=== PATIENT | male | born 1980 | race African-American/Black ===

== ENCOUNTER 2020-07-20 12:35 | Observation (INO) ==
[2020-07-20 13:00] LABS: Basophils % 0.2 % (0.0-0.8); Eosinophils # 0.2 10*3/uL (0.0-0.87); Eosinophils % 2.1 % (0.00-10.9); Hematocrit 40.4 VOL% (42.0-52.0); Hemoglobin 13.4 GM/DL (14.0-18.0); Immature Granulocytes % 0.5 %; Immature Granulocytes Absolute 0.04 #; Lymphocytes # 1.3 10*3/uL (1.4-4.0); Lymphocytes % 16.5 % (21.2-54.2); Mean Corpuscular HGB Conc 33.2 GM/DL (32-36); Mean Corpuscular Volume 85.1 FL (87-102); Mean Platelet Volume 8.8 FL (9.6-12.0); Monocytes % 6.5 % (1.7-12.7); Neutrophils % 74.2 % (38.7-73.9); Platelet Count 311 T/CUMM (130-400); Red Blood Count 4.75 MC/CUMM (3.8-5.5); Red Cell Distribution Width 15.4 % (9.3-17.3); White Blood Count 8.1 T/CUMM (4-12)
[2020-07-20 13:29] LABS: Alanine Aminotransferase 30 U/L (16-61); Albumin 3.8 G/DL (3.4-5.0); Alkaline Phosphatase 98 U/L (45-117); Aspartate Amino Transferase 19 U/L (0-37); Bilirubin,Total < 0.39 MG/DL (0.2-1.0); Blood Urea Nitrogen 12 MG/DL (7-18); Calcium 9.4 MG/DL (8.5-10.1); Glucose 96 MG/DL (74-106); Osmolality,Calculated 280.3 MOS/KG (273-304); Total Protein 7.9 G/DL (6.4-8.3)
[2020-07-20 13:30] LABS: Estimated Glom Filtration Rate 0 ML/MIN
[2020-07-20] MEDS ORDERED: hydrALAZINE 25 MG TABLET PO ONE (15:28)
[2020-07-20] MEDS ORDERED: LORazepam 2 MG/1 ML VIAL IV PRN (15:29)
[2020-07-20] MEDS ORDERED: ZALEPLON 5 MG CAPSULE PO PRN (15:30)
[2020-07-20] MEDS ORDERED: BISACODYL 5 MG TABLET PO PRN (15:30)
[2020-07-20] MEDS ORDERED: DEXTROSE 50% 25 GM/50 ML VIAL IV PRN (15:30)
[2020-07-20] MEDS ORDERED: MORPHINE 4 MG/1 ML VIAL IV PRN (15:30)
[2020-07-20] MEDS ORDERED: ONDANSETRON 4 MG/2 ML VIAL IV PRN (15:30)
[2020-07-20] MEDS ORDERED: LACTULOSE 20 GM/30 ML UDCUP PO PRN (15:30)
[2020-07-20] MEDS ORDERED: diphenhydrAMINE CAP 25 MG CAPSULE PO PRN (15:30)
[2020-07-20] MEDS ORDERED: NICOTINE 21 MG/24 HR PATCH TRANSDERM PRN (15:30)
[2020-07-20] MEDS ORDERED: DOCUSATE SODIUM 100 MG CAPSULE PO PRN (15:30)
[2020-07-20] MEDS ORDERED: ACETAMINOPHEN 325 MG TABLET PO PRN (15:30)
[2020-07-20] MEDS ORDERED: guaiFENesin/DM ER 600-30 MG TABLET PO PRN (15:30)
[2020-07-20] MEDS ORDERED: ALUMINUM/MAGNES/SIMETH MAX STR 30 ML UDCUP PO PRN (15:30)
[2020-07-20] MEDS ORDERED: SIMETHICONE CHEW 125 MG TABLET PO PRN (15:30)
[2020-07-20] MEDS ORDERED: GLUCAGON 1 MG VIAL IM PRN (15:30)
[2020-07-20] MEDS ORDERED: CALCIUM CARBONATE CHEW 500 MG TABLET PO PRN (15:30)
[2020-07-20] MEDS ORDERED: DIVALPROEX ER 250 MG TABLET PO SCH (21:00)
[2020-07-20] MEDS ORDERED: ENOXAPARIN 40 MG/0.4 ML SYRINGE SUBCUT SCH (21:00)
[2020-07-20] MEDS: hydrALAZINE 25 MG TABLET PO SCH (21:06)
[2020-07-20 22:35] LABS: Bilirubin,Urine Negative (Negative); Blood, Urine Negative (Negative); Glucose,Urine (UA) Negative (Negative); Ketones,Urine Negative (Negative); Nitrite,Urine Negative (Negative); Protein,Urine 100 MG/DL; RBC,Urine 2 /HPF (0-4); Urine Appearance CLEAR (Clear); Urine Color Yellow (Yellow); Urine Specific Gravity 1.046 (1.001-1.035); Urine Urobilinogen < 2.0 EU/DL (0.2-1.0); WBC,Urine <1 /HPF (0-6)
[2020-07-20 22:58] LABS: Barbiturates Screen,Urine Negative (Negative); Benzodiazepines Screen,Urine Negative (Negative); Cannabinoid Screen,Urine Negative (Negative); Opiate Screen,Urine Negative (Negative); Phencyclidine Screen,Urine Negative (Negative)
[2020-07-21 05:17] LABS: Basophils % 0.2 % (0.0-0.8); Eosinophils # 0.1 10*3/uL (0.0-0.87); Eosinophils % 1.1 % (0.00-10.9); Hematocrit 35.7 VOL% (42.0-52.0); Immature Granulocytes % 0.3 %; Immature Granulocytes Absolute 0.03 #; Lymphocytes # 2.4 10*3/uL (1.4-4.0); Lymphocytes % 24.8 % (21.2-54.2); Mean Corpuscular HGB Conc 33.6 GM/DL (32-36); Mean Platelet Volume 8.7 FL (9.6-12.0); Monocytes % 9.1 % (1.7-12.7); Neutrophils % 64.5 % (38.7-73.9); Platelet Count 283 T/CUMM (130-400); Red Blood Count 4.25 MC/CUMM (3.8-5.5); Red Cell Distribution Width 15.6 % (9.3-17.3); White Blood Count 9.8 T/CUMM (4-12)
[2020-07-21 05:42] LABS: Albumin 3.1 G/DL (3.4-5.0); Bilirubin,Total 0.6 MG/DL (0.2-1.0); Calcium 8.9 MG/DL (8.5-10.1); Osmolality,Calculated 273.8 MOS/KG (273-304); Total Protein 7.2 G/DL (6.4-8.3)
[2020-07-21 05:48] LABS: Risk Ratio 4.31; Thyroid Stimulating Hormone 0.719 uIU/ml (0.358-3.74); VLDL CHOLESTEROL 19.8 MG/DL
[2020-07-21] MEDS ORDERED: VALPROIC ACID INJ 1,000 MG in SODIUM CHLORIDE 0.9% 100 ML IV ONE (06:56)
[2020-07-21] MEDS ORDERED: DIVALPROEX ER 250 MG TABLET PO SCH (06:56)
[2020-07-21] MEDS ORDERED: PANTOPRAZOLE 40 MG TABLET PO SCH (09:00)
[2020-07-21] MEDS ORDERED: amLODIPine 10 MG TABLET PO SCH (09:00)
[2020-07-21] MEDS ORDERED: NEBIVOLOL 5 MG TABLET PO SCH ×2 (09:00)
[2020-07-21] MEDS ORDERED: ASPIRIN EC 81 MG TABLET PO SCH (09:30)
[2020-07-21] MEDS: hydrALAZINE 25 MG TABLET PO SCH (09:30)
[2020-07-21 11:21] VITALS: BP 135/68
== END 2020-07-21 16:10 | disposition home or self-care (01) ==
LOC: N.ED 12:35 → N.EDINP 12:35 → N.TELEN 16:40
PROVIDERS: ADMIT Internal Medicine; ATTEND Internal Medicine